=== PATIENT | female | born 1985 | race Two or more races ===

== ENCOUNTER 2025-01-22 14:03 | Emergency (ER) | payer MEDICAID, OTHER ==
[~2025-01-22] VITALS: Ht 149.9 cm; Wt 61.9 kg
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
[2025-01-22] MEDS ORDERED: IBUP-1454 PO (16:20)
[2025-01-22 16:35] VITALS: BP 118/75; PULSE 77; RESP 20; TEMP 98; O2SAT 98
== END 2025-01-22 16:40 | disposition home or self-care (01) ==
LOC: ER 14:03
DX: S16.1XXA Strain of muscle, fascia and tendon at neck level, initial encounter (principal); V89.2XXA Person injured in unspecified motor-vehicle accident, traffic, initial encounter; Y93.89 Activity, other specified; Y92.488 Other paved roadways as the place of occurrence of the external cause; Y99.8 Other external cause status
CPT/HCPCS: 72040